=== PATIENT | male | born 1995 | race Two or more races ===

== ENCOUNTER 2019-10-07 16:41 | Emergency (ER) | payer OTHER ==
[~2019-10-07] VITALS: Ht 182.9 cm; Wt 102.2 kg
[2019-10-07 16:51] VITALS: BP 163/77
--- NOTE | 2019-10-07 17:28 | RAD ---
EXAM: Right knee, 3 views. HISTORY: High riding patella. Pain. COMPARISON: None. FINDINGS: 3 views of the right knee are obtained. There is no acute fracture. There is a chronic corticated ossicle superior to the anterior tibial tubercle. No joint effusion is seen. There is slight superior patellar positioning. This may be projectional. IMPRESSION: No acute osseous finding. Electronically signed by: Evi Ayala MD (10/07/2019 5:26 PM) [facility]
[2019-10-07] MEDS ORDERED: HYDR-3165 PO (17:40)
--- NOTE | 2019-10-07 17:40 | PHYS DOC ---
Past History Past Medical History: No Pertinent History Past Surgical History: Other Additional Past Surgical Histo: right shoulder Smoking: Non-smoker Alcohol Use: None Drug Use: None Adult General Chief Complaint Chief Complaint: LOWEREXTREMITY INJURY HPI HPI 24-year-old male presents via EMS with sudden right knee pain just prior to arrival. Patient was playing volleyball with his family in their backyard and went to "spike "a ball and came down with some significant pain to his knee. Patient reports he felt that his knee bent backwards. Patient tried to bend his knee with significant pain. Denies numbness or tingling. Patient reports history of chronic knee issues. Denies prior surgery. EMS reports giving 2 mg of morphine in route. Review of Systems Review of Systems Constitutional: Denies fever or chills Musculoskeletal: Denies back pain; reports right knee pain Integument: Denies rash or skin lesions Neurologic: Denies headache, focal weakness or sensory changes Complete systems were reviewed and found to be within normal limits, except as documented in this note. Current Medications Current Medications Current Medications Medications (Trade) Dose Ordered Sig/Connor Start Time Stop Time Status Last Admin Dose Admin Fentanyl Citrate (Fentanyl 2ml Vial) 50 mcg 1X ONCE 10/07/19 17:00 10/07/19 17:01 DC 10/07/19 17:00 50 MCG Allergies Allergies Allergies Coded Allergies Type Severity Reaction Last Updated Verified No Known Drug Allergies 10/07/19 No Physical Exam Physical Exam Constitutional: Well developed, well nourished, no acute distress, non-toxic appearance HENT: Normocephalic, atraumatic, oropharynx moist Eyes: Conjunctiva normal, no discharge Neck: Normal range of motion, no tenderness, supple Cardiovascular: Right PT and DP +2, cap refill less than 2 seconds to right lo wer extremity Lungs & Thorax: No respiratory distress, equal rise and fall of chest Skin: Warm, dry, no erythema, no rash Extremities: Right knee: patellar tendon tender and boggy on palpation, anterior drawer test negative, patellar high riding, ROM limited due to pain Neurologic: Alert and oriented X 3, no focal deficits noted Psychologic: Affect normal, judgment normal Current Patient Data Vital Signs Vital Signs Date Time Temp Pulse Resp B/P (MAP) Pulse Ox O2 Delivery O2 Flow Rate FiO2 10/07/19 17:00 16 98 Room Air 10/07/19 16:51 99.9 87 163/77 (105) EKG EKG [] Radiology/Procedures Radiology/Procedures PROCEDURE: KNEE RIGHT 3V EXAM: Right knee, 3 views. HISTORY: High riding patella. Pain. COMPARISON: None. FINDINGS: 3 views of the right knee are obtained. There is no acute fracture. There is a chronic corticated ossicle superior to the anterior tibial tubercle. No joint effusion is seen. There is slight superior patellar positioning. This may be projectional. IMPRESSION: No acute osseous finding. Electronically signed by: Evi Ayala MD (10/07/2019 5:26 PM) [facility] Course & Med Decision Making Course & Med Decision Making Pertinent Imaging studies reviewed. (See chart for details) Patient presents via EMS with history of present illness and physical exam concerning for right patellar tendon injury. Limb otherwise neurovascularly intact. Joint appears stable. X-ray obtained with high riding patella. No fracture/dislocation appreciated. Pain addressed. Ice applied. Knee immobilizer provided along with crutches. Crutch training also provided. Patient stable for discharge with outpatient follow-up with PCP/orthopedics. Orthopedic referral provided. Discussed findings and plan with patient, who acknowledges understanding and agreement. Of note patient did receive prescription for [place] [id number]/33858 tabs upon discharge. Patient took to pharmacy and [facility] who reported they would be unable to fill his prescription this evening due to the late time. Patient was to obtain in the a.m. Patient and spouse called emergency department reporting issue. Tried to call similar change in pharmacy that was open 24 hours. Unfortunately they were unable to see the prior prescription in her system and are unable to take scheduled to medication over the phone. Interim tramadol 50 mg 10 tablets were called in for patient to use until he can obtain the ED hydrocodone in the a.m. Dragon Disclaimer Dragon Disclaimer This electronic medical record was generated, in whole or in part, using a voice recognition dictation system. Splinting Splinting : Location: Right knee Pre-Made Type: knee immobilizer Pre-Proc Neuro Vasc Exam: normal Post-Proc Neuro Vasc Exam: normal, unchanged from pre-exam Departure Departure: Impression: Primary Impression: Right knee injury Disposition: HOME, SELF-CARE Condition: STABLE Referrals: PCP,LISSETTE (PCP) CARSON HEREDIA MD Patient Instructions: Crutch Use, [id number], Knee Immobilizer, Xdpw-ai-Runr, Knee Pain, Culd-cq-Ybzb, Patellar Tendon Tear/Disruption with [facility] Additional Instructions: May also use over the counter Ibuprofen as needed for pain. Scripts Hydrocodone Bit/Acetaminophen (NORCO 5-325 TABLET) 1 Each Tablet 0.5-1 TAB PO Q6HRS PRN for PAIN, #14 TAB Prov: BOB REYES DO 10/07/19 Problem Qualifiers Primary Impression: Right knee injury Encounter type: initial encounter Qualified Codes: S89.91XA - Unspecified injury of right lower leg, initial encounter BOB REYES DO Oct 07, 2019 17:40
== END 2019-10-07 17:49 | disposition home or self-care (01) ==
LOC: ER 16:41
DX: S89.91XA Unspecified injury of right lower leg, initial encounter (principal); X50.9XXA Other and unspecified overexertion or strenuous movements or postures, initial encounter; Y93.68 Activity, volleyball (beach) (court); Y92.89 Other specified places as the place of occurrence of the external cause; Y99.8 Other external cause status
CPT/HCPCS: 29505; 73562; 96374; 96376; 99284; J3010

== ENCOUNTER 2019-10-11 13:44 | Emergency (ER) | payer OTHER ==
[~2019-10-11] VITALS: Ht 182.9 cm; Wt 102.2 kg
[~2019-10-11 13:44] MED LIST: HYDR-3165 PO
[2019-10-11 14:00] VITALS: BP 142/69
[2019-10-11] MEDS ORDERED: ONDANSETRON ODT 4 MG TAB.RAPDIS PO ONE (14:15)
[2019-10-11] MEDS ORDERED: HYDR-3165 PO (14:27)
[2019-10-11] MEDS ORDERED: ONDA4TAB12 PO (14:27)
--- NOTE | 2019-10-11 14:28 | PHYS DOC ---
Past History Past Medical History: No Pertinent History Past Surgical History: Other Additional Past Surgical Histo: right shoulder Smoking: Non-smoker Alcohol Use: None Drug Use: None General Adult EDM: Chief Complaint: NAUSEA/VOMITING/DIARRHEA HPI: HPI: 24-year-old male returns emergency room with continued right knee pain. Patient is also had episodes of nausea and vomiting due to the pain. He is trying to co nserve his Alma. He has been mostly nonweightbearing, but does put some weight on the leg with his crutches. This is when he has the significant pain which leads to his nausea and vomiting. He does not get nauseated or vomit when he takes his medication. It seems to always be due to pain. Review of Systems: Review of Systems: Constitutional: Denies fever or chills Eyes: Denies change in visual acuity HENT: Denies nasal congestion or sore throat Respiratory: Denies cough or shortness of breath Cardiovascular: Denies chest pain or edema GI: nausea, vomiting. Denies abdominal pain, bloody stools or diarrhea : Denies dysuria Musculoskeletal: Right knee pain Integument: Denies rash Neurologic: Denies headache, focal weakness or sensory changes Endocrine: Denies polyuria or polydipsia Lymphatic: Denies swollen glands Psychiatric: Denies depression or anxiety Heart Score: Risk Factors: Risk Factors: DM, Current or recent (<one month) smoker, HTN, HLP, family history of CAD, obesity. Risk Scores: Score 0 - 3: 2.5% MACE over next 6 weeks - Discharge Home Score 4 - 6: 20.3% MACE over next 6 weeks - Admit for Clinical Observation Score 7 - 10: 72.7% MACE over next 6 weeks - Early Invasive Strategies Current Medications: Current Meds: Current Medications Medications (Trade) Dose Ordered Sig/Connor Start Time Stop Time Status Last Admin Dose Admin Ondansetron HCl (Zofran Odt) 4 mg 1X ONCE 10/11/19 14:15 10/11/19 14:18 DC Allergies: Allergies: Allergies Coded Allergies Type Severity Reaction Last Updated Verified No Known Drug Allergies 10/07/19 No Physical Exam: PE: Constitutional: Well developed, well nourished, no acute distress, non-toxic appearance. [] HENT: Normocephalic, atraumatic, bilateral external ears normal, oropharynx moist, no oral exudates, nose normal. [] Eyes: PERRLA, EOMI, conjunctiva normal, no discharge. [] Neck: Normal range of motion, no tenderness, supple, no stridor. [] Cardiovascular:Heart rate regular rhythm, no murmur [] Lungs & Thorax: Bilateral breath sounds clear to auscultation [] Abdomen: Bowel sounds normal, soft, no tenderness, no masses, no pulsatile masses. [] Skin: Warm, dry, no erythema, no rash. [] Back: No tenderness, no CVA tenderness. [] Extremities: Right leg in a knee immobilizer, ecchymosis around the infrapate llar region. [] Neurologic: Alert and oriented X 3, normal motor function, normal sensory function, no focal deficits noted. [] Psychologic: Affect normal, judgement normal, mood normal. [] Current Patient Data: Vital Signs: Vital Signs Date Time Temp Pulse Resp B/P (MAP) Pulse Ox O2 Delivery O2 Flow Rate FiO2 10/11/19 14:00 98.2 78 16 142/69 (93) 98 Room Air EKG: EKG: [] Radiology/Procedures: Radiology/Procedures: [] Course & Med Decision Making: Course & Med Decision Making Pertinent Labs and Imaging studies reviewed. (See chart for details) The patient appears to be having vomiting due to pain. He is almost out of his pain medication. He has called orthopedics but they cannot see him for 3-4 wee ks. He is trying to get into another office. I will give him an additional 20 Alma 5/325 as well as a prescription for Zofran. He is stable for discharge at this time. [] Dragon Disclaimer: Dragon Disclaimer: This electronic medical record was generated, in whole or in part, using a voice recognition dictation system. Departure Departure: Impression: Primary Impression: Nausea & vomiting Additional Impression: Right knee pain Disposition: 01 HOME, SELF-CARE Condition: STABLE Referrals: MYRTLE ANN (PCP) Patient Instructions: Nausea and Vomiting, Syux-cq-Ihsb Scripts Ondansetron (ONDANSETRON ODT) 4 Mg Tab.rapdis 1 TAB PO PRN Q6-8HRS PRN for VOMITING, #16 TAB Prov: LOY MONTAGUE DO 10/11/19 Hydrocodone Bit/Acetaminophen (NORCO 5-325 TABLET) 1 Each Tablet 1 TAB PO PRN Q6HRS PRN for PAIN, #20 TAB 0 Refills Prov: LOY MONTAGUE DO 10/11/19 LOY MONTAGUE DO Oct 11, 2019 14:28
== END 2019-10-11 14:33 | disposition home or self-care (01) ==
LOC: ER 13:44
DX: S80.01XD Contusion of right knee, subsequent encounter (principal); R11.2 Nausea with vomiting, unspecified; X58.XXXD Exposure to other specified factors, subsequent encounter
CPT/HCPCS: 99283

== ENCOUNTER 2021-03-14 19:21 | Emergency (ER) | payer OTHER ==
[~2021-03-14] VITALS: Ht 182.9 cm; Wt 102.2 kg
[~2021-03-14 19:21] MED LIST changes: +ONDA4TAB12 PO
[2021-03-14 20:11] VITALS: BP 139/59
[2021-03-14] MEDS ORDERED: IV RINGERS SOLUTION,LACTATED 1,000 ML IV SCH (20:15)
--- NOTE | 2021-03-14 20:44 | PHYS DOC ---
Past History Past Medical History: No Pertinent History Past Surgical History: Other Additional Past Surgical Histo: right shoulder, WISDOM TEETH, KNEE Smoking: Non-smoker Alcohol Use: None Drug Use: None General Adult EDM: Chief Complaint: ELBOW PROBLEM HPI: HPI: "I was moving a Telephone like pole to build a shop wall.. and it rolled and my Lt elbow dislocated..I let go of pole and it popped back in... It still really sore a swollen. 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 elbow while attempting to stabilized a pull used to build a barn. Patient's left elbow is swollen. Does have limited range of motion. Distal neurovascular is intact. Cap refill is equal to right hand. Patient is right-hand dominant. Patient has had past history of dislocation left shoulder and right knee. Patient is right-hand dominant. No recent travel. No specific ill contacts. No history immunosuppression. Review of Systems: Review of Systems: Constitutional: Denies fever or chills Eyes: Denies change in visual acuity HENT: Denies nasal congestion or sore throat Respiratory: Denies cough or shortness of breath Cardiovascular: Denies chest pain or edema GI: Denies abdominal pain, nausea, vomiting, bloody stools or diarrhea : Denies dysuria Musculoskeletal: Complains of left elbow pain and edema post dislocation Integument: Denies rash Neurologic: Denies headache, focal weakness or sensory changes Endocrine: Denies polyuria or polydipsia Lymphatic: Denies swollen glands Psychiatric: Denies depression or anxiety Family History: Family History: Noncontributory to presentation Current Medications: Current Meds: Current Medications Medications (Trade) Dose Ordered Sig/Connor Start Time Stop Time Status Last Admin Dose Admin Lactated Ringer's 1,000 ml @ 1,000 mls/hr Q1H 03/14/21 20:15 03/14/21 21:14 Morphine Sulfate (Morphine 10mg Syringe) 10 mg 1X ONCE 03/14/21 20:45 03/14/21 20:46 03/14/21 20:21 10 MG Allergies: Allergies: Allergies Coded Allergies Type Severity Reaction Last Updated Verified No Known Drug Allergies 10/07/19 No Physical Exam: PE: Constitutional: Well developed, well nourished, in acute distress, non-toxic appearance. [] HENT: Normocephalic, atraumatic, bilateral external ears normal, oropharynx moist, no oral exudates, nose normal. [] Eyes: PERRLA, EOMI, conjunctiva normal, no discharge. [] Neck: Normal range of motion, no tenderness, supple, no stridor. [] Cardiovascular:Heart rate regular rhythm, no murmur [] Lungs & Thorax: Bilateral breath sounds clear to auscultation [] Some Lt chest wall tenderness. Abdomen: Bowel sounds normal, soft, no tenderness, no masses, no pulsatile masses. [] Skin: Warm, dry, no erythema, no rash. Multiple tattoos Back: No tenderness, no CVA tenderness. [] Extremities: No tenderness, no cyanosis, no clubbing, ROM intact, no edema. [] Except findings in left elbow. Neurologic: Alert and oriented X 3, normal motor function, normal sensory function, no focal deficits noted. [] Psychologic: Affect anxious, judgement normal, mood normal. [] Current Patient Data: Vital Signs: Vital Signs Date Time Temp Pulse Resp B/P (MAP) Pulse Ox O2 Delivery O2 Flow Rate FiO2 03/14/21 20:11 97.8 81 18 139/59 (85) 98 Room Air EKG: EKG: [] Radiology/Procedures: Radiology/Procedures: Unable to view x-rays due to problems with radiology. [][place] [address] IMAGING REPORT Signed PATIENT: BRIAN MAYFIELD CACCOUNT: [id number] : 1995 LOCATION: ER AGE: 26 SEX: M EXAM STATUS: DEP ER ORD. PHYSICIAN: KRISTIN IVERSON MD REASON: CAUGHT FALLING TELEPHONE POLE PROCEDURE: CHEST AP ONLY EXAMINATION: Chest radiograph. VIEWS: AP view COMPARISON: None INDICATION:26 years, Male, caught falling telephone pole. FINDINGS: Normal cardiomediastinal silhouette. No focal consolidation. No pleural effusion or pneumothorax. No acute osseous process. IMPRESSION: No acute cardiopulmonary process. Electronically signed by: La Mcgrath DO (03/15/2021 2:51 AM) [facility] DICTATED AND SIGNED BY: LA MCGRATH DO DATE: 03/15/21250 CC: MYRTLE ANN; KRISTIN IVERSON MD ~[facility]0 0 [facility] [place] [id number] IMAGING REPORT Signed PATIENT: BRIAN MAYFIELD CACCOUNT: [id number] : 1995 LOCATION: ER AGE: 26 SEX: M EXAM STATUS: REG ER ORD. PHYSICIAN: KRISTIN IVERSON MD REASON: dislocated, CAUGHT FALLING TELEPHONE POLE PROCEDURE: HUMERUS LEFT XR HUMERUS_LT 2 VIEWS, XR ELBOW COMPLETE_LEFT 3+VIEWS Clinical indications: Reason: dislocated, CAUGHT FALLING TELEPHONE POLE injury and pain. Left elbow: No joint effusion is seen. No acute fracture or dislocation or osteolytic process is evident. 2 view left humerus: No acute fracture or dislocation or lytic process is seen. IMPRESSION: No acute osseous abnormality is evident. Electronically signed by: Hudson Goodson MD (03/14/2021 9:22 PM) [id number] DICTATED AND SIGNED BY: HUDSON GOODSON MD DATE: 03/14/212120 CC: MYRTLE ANN; KRISTIN IVERSON MD ~[facility] [address] [address] IMAGING REPORT Signed Heart Score: C/O Chest Pain: N/A Risk Factors: Risk Factors: DM, Current or recent (<one month) smoker, HTN, HLP, family history of CAD, obesity. Risk Scores: Score 0 - 3: 2.5% MACE over next 6 weeks - Discharge Home Score 4 - 6: 20.3% MACE over next 6 weeks - Admit for Clinical Observation Score 7 - 10: 72.7% MACE over next 6 weeks - Early Invasive Strategies Course & Med Decision Making: Course & Med Decision Making Pertinent Labs and Imaging studies reviewed. (See chart for details) Ice packs as needed. Wear the sling. Follow-up PCM Ortho. Elevation. Impression: 1. Dislocation of Lt. elbow [] Vnagie Disclaimer: Vangie Disclaimer: This electronic medical record was generated, in whole or in part, using a voice recognition dictation system. Departure Departure: Referrals: MYRTLE ANN (PCP) Scripts Hydrocodone/Ibuprofen (HYDROCODONE-IBUPROFEN 7.5-200 ) 1 Each Tablet 1 TAB PO PRN Q6HRS PRN for PAIN, #30 TAB 0 Refills Prov: KRISTIN IVERSON MD 03/14/21 Dragon Disclaimer This chart was dictated in whole or in part using Voice Recognition software in a busy, high-work load, and often noisy Emergency Department environment. It may contain unintended and wholly unrecognized errors or omissions. Dragon Disclaimer This chart was dictated in whole or in part using Voice Recognition software in a busy, high-work load, and often noisy Emergency Department environment. It may contain unintended and wholly unrecognized errors or omissions. KRISTIN IVERSON MD Mar 14, 2021 20:44
[2021-03-14] MEDS ORDERED: MORPHINE SULFATE 10 MG/ML SYRINGE. SQ ONE ×2 (20:45→22:00)
[2021-03-14] MEDS ORDERED: HYDR-1179 PO (21:17)
--- NOTE | 2021-03-14 21:24 | RAD ---
XR HUMERUS_LT 2 VIEWS, XR ELBOW COMPLETE_LEFT 3+VIEWS Clinical indications: Reason: dislocated, CAUGHT FALLING TELEPHONE POLE injury and pain. Left elbow: No joint effusion is seen. No acute fracture or dislocation or osteolytic process is evid ent. 2 view left humerus: No acute fracture or dislocation or lytic process is seen. IMPRESSION: No acute osseous abnormality is evident. Electronically signed by: Andrew Goodson MD (03/14/2021 9:22 PM) [id number]
[2021-03-14] MEDS ORDERED: oxyCODONE/APAP 5/325 1 TAB TABLET ONE (21:39)
[2021-03-14] MEDS ORDERED: oxyCODONE/APAP 5/325 1 TAB TABLET PO ONE (21:45)
--- NOTE | 2021-03-15 02:54 | RAD ---
EXAMINATION: Chest radiograph. VIEWS: AP view COMPARISON: None INDICATION:26 years, Male, caught falling telephone pole. FINDINGS: Normal cardiomediastinal silhouette. No focal consolidation. No pleural effusion or pneumothorax. No acute osseous process. IMPRESSION: No acute cardiopulmonary process. Electronically signed by: Erich Mcgrath DO (03/15/2021 2:51 AM) [facility]
--- NOTE | 2021-03-15 02:56 | RAD ---
History: Caught following telephone pole Comparison: Concurrent elbow and humeral radiographs Findings: No acute fracture, malalignment, or dislocation of the forearm visualized wrist. Soft tissu es are unremarkable. Impression: No acute findings. Electronically signed by: Erich Mcgrath DO (03/15/2021 2:53 AM) [facility]
== END 2021-03-14 21:43 | disposition home or self-care (01) ==
LOC: ER 19:21
DX: S53.105A Unspecified dislocation of left ulnohumeral joint, initial encounter (principal); R07.89 Other chest pain; W20.8XXA Other cause of strike by thrown, projected or falling object, initial encounter; Y93.89 Activity, other specified; Y92.89 Other specified places as the place of occurrence of the external cause; Y99.8 Other external cause status
CPT/HCPCS: 29105; 71045; 73060; 73080; 73090; 96372; 99284; J2270